=== PATIENT | female | born 1970 ===

== ENCOUNTER 2020-12-12 10:00 | Inpatient (IN) | payer OTHER ==
[~2020-12-12] VITALS: Ht 157.5 cm; Wt 72.1 kg
[2020-12-16] MEDS ORDERED: OMEPRAZOLE40 MG (08:00)
[2020-12-19] MEDS ORDERED: KETO10TA2 PO (10:00)
[2020-12-19] MEDS ORDERED: NEURONTIN300 MG PO (10:00)
[2020-12-19] MEDS ORDERED: ULTRAM50 MG PO (10:01)
[2020-12-19] MEDS ORDERED: INTESTINEX680 M1 PO (10:02)
== END 2020-12-19 10:17 | disposition home or self-care (01) | DRG 331 ==
LOC: O/R 12-16 05:34 → SURG 12-16 05:34 → SURH 12-16 07:00 → SURG 12-16 11:00 → SURH 12-16 15:43
PROVIDERS: ADMIT Surgery; ATTEND Surgery
PROC: 0DTP4ZZ Resection of Rectum, Percutaneous Endoscopic Approach (ICD-10-PCS; 2020-12-16)
PROC: 0DJD8ZZ Inspection of Lower Intestinal Tract, Via Natural or Artificial Opening Endoscopic (ICD-10-PCS; 2020-12-16)
PROC: 0DBN4ZZ Excision of Sigmoid Colon, Percutaneous Endoscopic Approach (ICD-10-PCS; principal; 2020-12-16 07:00)
DX: K57.32 Diverticulitis of large intestine without perforation or abscess without bleeding (principal)